=== PATIENT | male | born 1950 | race Caucasian/White ===

== ENCOUNTER 2019-04-19 10:34 | Emergency (ER) | payer MEDICARE ==
[~2019-04-19] VITALS: Ht 170.2 cm; Wt 55.0 kg
[2019-04-19 11:37] LABS: CLARITY URINE CLEAR (CLEAR); COLOR URINE YELLOW (YELLOW); KETONES URINE NEGATIVE (NEGATIVE); LEUKOCYTE ESTERASE URINE NEGATIVE (NEGATIVE); NITRITE URINE NEGATIVE (NEGATIVE); OCCULT BLOOD URINE NEGATIVE (NEGATIVE); PROTEIN URINE NEGATIVE (NEGATIVE); SPECIFIC GRAVITY URINE 1.003 (1.005-1.030); UROBILINOGEN URINE 0.2 E.U./dL (0.2-1.0)
[2019-04-19 11:58] LABS: BASOPHILS % 0.7 % (0.0-2.0); EOSINOPHILS % 0.5 % (0.0-5.0); HEMATOCRIT. 43.9 % (42.0-52.0); HEMOGLOBIN. 14.7 g/dL (14.0-18.0); LYMPHOCYTES % 24.2 % (20.0-50.0); MEAN CORPUSCULAR HEMOGLOBIN 28.7 pg (28.0-32.0); MEAN CORPUSCULAR VOLUME 85.5 fL (80.0-94.0); MEAN PLATELET VOLUME 7.9 fl (7.4-10.4); MONOCYTES % 12.4 % (2.0-8.0); NEUTROPHILS % 62.2 % (40.0-76.0); PLATELET 181 x1000/uL (130-400); RED BLOOD CELL COUNT 5.13 mill/uL (4.7-6.1); RED CELL DISTRIBUTION WIDTH 15.6 % (11.6-14.6)
[2019-04-19 12:03] LABS: CHLORIDE 95 mEq/L (98-107)
[2019-04-19] MEDS: KETOROLAC 60MG/2ML VIAL IM NR ×2 (15:00→16:46)
[2019-04-19] MEDS ORDERED: PENICILLIN G BENZATHINE 1,200,000 UNITS/2ML SYR IM NR (15:15)
[2019-04-19 16:46] VITALS: BP 110/63
== END 2019-04-19 16:49 | disposition home or self-care (01) ==
LOC: ER 10:34 → EDBD 10:34 → ER 16:49
DX: K02.9 Dental caries, unspecified (principal); K05.10 Chronic gingivitis, plaque induced; K14.6 Glossodynia; M19.90 Unspecified osteoarthritis, unspecified site
CPT/HCPCS: 36415; 71046; 80053; 81003; 82962; 84484; 85025; 93005; 96372; 99284; J0561; J1885